=== PATIENT | female | born 1990 | race African-American/Black ===

== ENCOUNTER 2017-05-07 16:12 | Emergency (ER) | payer OTHER ==
[~2017-05-07] VITALS: Ht 172.7 cm; Wt 115.7 kg
[2017-05-07 17:27] LABS: URINE BILIRUBIN NEGATIVE (Negative); URINE BLOOD NEGATIVE (Negative); URINE CLARITY SL CLOUDY; URINE COLOR YELLOW; URINE GLUCOSE-RANDOM NEGATIVE (Negative); URINE KETONES TRACE (Negative); URINE LEUKOCYTES-REFLEX NEGATIVE (Negative); URINE NITRITE-REFLEX NEGATIVE (Negative); URINE PROTEIN NEGATIVE (Negative); URINE SPECIFIC GRAVITY >= 1.030 (1.005-1.030); URINE UROBILINOGEN 0.2 E.U./dl (0.2-1.0)
[2017-05-07 17:35] LABS: BACTERIA-REFLEX >30 Many /HPF (None Seen); CASTS None Seen /LPF (None Seen); MUCUS 0-3 Light strn/LPF (None Seen); SQUAMOUS >10 Many /LPF (0-3)
[2017-05-07 17:36] LABS: CRYSTALS None Seen /LPF (None Seen); URINE RBC None Seen /HPF (0-2); URINE WBC-REFLEX None Seen /HPF (0-5)
[2017-05-07 18:08] VITALS: BP 157/99
== END 2017-05-07 18:09 | disposition home or self-care (01) ==
LOC: M.ERS 16:12
PROVIDERS: Physician Assistant
DX: N76.0 Acute vaginitis (principal); Z98.890 Other specified postprocedural states

== ENCOUNTER 2017-05-17 01:00 | Emergency (ER) | payer OTHER ==
[~2017-05-17] VITALS: Ht 172.7 cm; Wt 120.7 kg
[2017-05-17 03:31] VITALS: BP 148/66
== END 2017-05-17 03:36 | disposition home or self-care (01) ==
LOC: M.ERS 01:00
DX: R51 Headache (principal); Z98.890 Other specified postprocedural states

== ENCOUNTER 2019-06-09 21:32 | Emergency (ER) | payer OTHER ==
[~2019-06-09] VITALS: Ht 170.2 cm; Wt 86.2 kg
[2019-06-09 22:00] VITALS: BP 129/78
[2019-06-09 22:08] LABS: URINE BILIRUBIN NEGATIVE (Negative); URINE BLOOD NEGATIVE (Negative); URINE CLARITY CLEAR; URINE COLOR YELLOW; URINE GLUCOSE-RANDOM NEGATIVE (Negative); URINE KETONES NEGATIVE (Negative); URINE LEUKOCYTES-REFLEX NEGATIVE (Negative); URINE NITRITE-REFLEX NEGATIVE (Negative); URINE PROTEIN TRACE (Negative); URINE SPECIFIC GRAVITY >= 1.030 (1.005-1.030); URINE UROBILINOGEN 0.2 E.U./dl (0.2-1.0)
[2019-06-09 22:16] LABS: AMP/METHAMP Negative (Negative); BARBITURATES Negative (Negative); BENZODIAZEPINES Negative (Negative); COCAINE Negative (Negative); METHADONE Negative (Negative); OPIATES Negative (Negative); PCP Negative (Negative); THC Negative (Negative)
--- NOTE | 2019-06-10 01:48 | NUR ---
PATIENT OFFERED CAB VOUCHER. PATIENT UNWILLING TO GIVE PHYSICAL ADDRESS AFTER SEVERAL ATTEMPTS WERE MADE. PATIENT EDUCATED ON HOW VOUCHERS WORK. SECURITY NOTIFIED OF INCREASE IN PATIENTS BEHAVIORS.
[2019-06-10] MEDS ORDERED: VERAPAMIL ER120 MG PO (13:58)
[2019-06-10] MEDS ORDERED: TRAMADOL 50 MG50 MG PO (15:15)
[2019-06-10] MEDS ORDERED: IBUPROFEN 800800 M1 PO (15:15)
== END 2019-06-09 22:21 | disposition home or self-care (01) ==
LOC: M.ERS 21:32
PROVIDERS: Personal Emergency Response Attendant
DX: M54.5 Low back pain (principal); Z90.49 Acquired absence of other specified parts of digestive tract; Z98.890 Other specified postprocedural states

== ENCOUNTER 2019-06-10 13:50 | Emergency (ER) | payer OTHER ==
[~2019-06-10] VITALS: Ht 180.3 cm; Wt 99.8 kg
[2019-06-10] MEDS ORDERED: VERAPAMIL ER120 MG PO (13:58)
[2019-06-10] MEDS ORDERED: IBUPROFEN 800800 M1 PO (15:15)
[2019-06-10] MEDS ORDERED: TRAMADOL 50 MG50 MG PO (15:15)
[2019-06-10 15:33] LABS: URINE BILIRUBIN NEGATIVE (Negative); URINE BLOOD NEGATIVE (Negative); URINE CLARITY CLEAR; URINE COLOR YELLOW; URINE GLUCOSE-RANDOM NEGATIVE (Negative); URINE KETONES NEGATIVE (Negative); URINE LEUKOCYTES-REFLEX NEGATIVE (Negative); URINE NITRITE-REFLEX NEGATIVE (Negative); URINE PROTEIN NEGATIVE (Negative); URINE SPECIFIC GRAVITY >= 1.030 (1.005-1.030); URINE UROBILINOGEN 0.2 E.U./dl (0.2-1.0)
[2019-06-10 16:33] VITALS: BP 125/75
== END 2019-06-10 16:33 | disposition home or self-care (01) ==
LOC: M.ERS 13:50
PROVIDERS: Nurse Practitioner Family
DX: M54.42 Lumbago with sciatica, left side (principal); M54.41 Lumbago with sciatica, right side; Z76.5 Malingerer [conscious simulation]; Z90.49 Acquired absence of other specified parts of digestive tract; Z98.890 Other specified postprocedural states

== ENCOUNTER 2019-06-10 21:14 | Emergency (ER) | payer OTHER ==
[~2019-06-10] VITALS: Ht 180.3 cm; Wt 99.8 kg
[~2019-06-10 21:14] MED LIST: IBUPROFEN 800800 M1 PO; TRAMADOL 50 MG50 MG PO; VERAPAMIL ER120 MG PO
[2019-06-10 21:47] VITALS: BP 136/77
== END 2019-06-10 21:48 | disposition home or self-care (01) ==
LOC: M.ERS 21:14
DX: R42 Dizziness and giddiness (principal); T39.315A Adverse effect of propionic acid derivatives, initial encounter; Z90.49 Acquired absence of other specified parts of digestive tract; Z98.890 Other specified postprocedural states; Y92.89 Other specified places as the place of occurrence of the external cause